=== PATIENT | male | born 1965 | race Hispanic/Latino ===

== ENCOUNTER 2016-11-29 21:03 | Emergency (ER) | payer SELFPAY ==
[2016-11-29 21:08] VITALS: BP 137/65; PULSE 72; RESP 16; TEMP 98.3; O2SAT 96
--- NOTE | 2016-11-29 21:33 | ED PDOC ---
HPI: Eye Injury/Pain Time Seen by Provider: 11/29/16 21:12 Chief Complaint (Nursing): Eye Problem Chief Complaint (Provider): Left eye irritation History Per: Patient History/Exam Limitations: no limitations Onset/Duration Of Symptoms: Days (x 3) Current Symptoms Are (Timing): Still Present Additional Complaint(s): Rene Mcdermott is a 51 y/o male presenting to the ED for complaints of left eye redness and discharge for the past 3 days. Denies history of diabetes, contact lens use, trauma, or pain. PMD: Dr. Jelani Villalobos Past Medical History Reviewed: Historical Data, Nursing Documentation, Vital Signs Vital Signs: Last Vital Signs Temp 98.3 F 11/29/16 21:05 Pulse 72 11/29/16 21:05 Resp 16 11/29/16 21:05 BP 137/65 11/29/16 21:05 Pulse Ox 96 11/29/16 21:05 - Family History Family History: States: Unknown Family Hx - Home Medications Home Medications: Ambulatory Orders Medication Instructions Recorded Erythromycin 0.5% [Erythromycin 1 appl LEFTEYE QID #3 tube 11/29/16 0.5% Oint] - Allergies Allergies/Adverse Reactions: Allergies Allergy/AdvReac Type Severity Reaction Status Date / Time No Known Allergies Allergy Verified 11/29/16 21:05 Review of Systems ROS Statement: Except As Marked, All Systems Reviewed And Found Negative Eyes: Positive for: Redness, Other (Discharge). Negative for: Pain (and trauma) Physical Exam - Reviewed Nursing Documentation Reviewed: Yes Vital Signs Reviewed: Yes - Physical Exam Appears: Positive for: Non-toxic, No Acute Distress Head Exam: Positive for: ATRAUMATIC, NORMAL INSPECTION, NORMOCEPHALIC Eye Exam: Positive for: EOMI (without pain), Conjunctival injection (Left conjunctival injection with crusting noted). Negative for: Periorbital swelling , Periorbital tenderness Neurologic/Psych: Positive for: Alert, Oriented - ECG O2 Sat by Pulse Oximetry: 96 (RA) Pulse Ox Interpretation: Normal Medical Decision Making Medical Decision Making: Time: 21:17 Clinical Impression: Conjunctivitis Upon provider evaluation patient is medically stable, and requires no further treatment in the ED at this time. Patient will be discharged home with Rx for Erythromycin cream. Counseling was provided and all questions were answered regarding diagnosis and need for follow up with PMD. There is agreement to discharge plan. Return if symptoms persist or worsen. Scribe Attestation: Documented by Natalia Guo, acting as a scribe for Jelani Stewart PA-C Provider Scribe Attestation: All medical record entries made by the Scribe were at my direction and personally dictated by me. I have reviewed the chart and agree that the record accurately reflects my personal performance of the history, physical exam, medical decision making, and the department course for this patient. I have also personally directed, reviewed, and agree with the discharge instructions and disposition. Disposition - Clinical Impression Clinical Impression: Conjunctivitis - Patient ED Disposition Is Patient to be Admitted: No Counseled Patient/Family Regarding: Diagnosis, Need For Followup, Rx Given - Disposition Referrals: [facility] [Outside] Disposition: Routine/Home Disposition Time: 21:17 Condition: STABLE Prescriptions: Erythromycin 0.5% [Erythromycin 0.5% Oint] 1 appl LEFTEYE QID #3 tube Instructions: Conjunctivitis (ED) Forms: [employer] (Mexican) Print Language: PANAMANIAN
== END 2016-11-29 21:55 | disposition home or self-care (01) ==
LOC: H.ER 21:03
DX: H10.9 Unspecified conjunctivitis (principal)